=== PATIENT | male | born 1965 | race Caucasian/White ===

== ENCOUNTER 2017-10-16 19:28 | Inpatient (IN) | payer SELFPAY ==
[2017-10-16] MEDS ORDERED: LORazepam 2 MG/ML INJ IVP ONE (20:20)
--- NOTE | 2017-10-16 20:20 | EDPHY ---
H & P Stated Complaint: feelling bad, SI Source: Patient Exam Limitations: No limitations - Personal History Current Tetanus Diphtheria and Acellular Pertussis (TDAP): Yes - Medical/Surgical History Hx Asthma: No Hx Chronic Respiratory Disease: No Hx Diabetes: No Hx Cardiac Disease: No Hx Renal Disease: No Hx Cirrhosis: No Hx Alcoholism: No Hx HIV/AIDS: No Hx Splenectomy or Spleen Trauma: No Other PMH: bipolar, depression - Social History Smoking Status: Heavy smoker Time Seen by Provider: 10/16/17 20:13 HPI/ROS: CHIEF COMPLAINT: Suicidal thoughts HISTORY OF PRESENT ILLNESS: The patient is a 52-year-old man from [place] who comes to the emergency department complaining of suicidal thoughts. He states that he has been drinking heavily for the last 4 days. 2 weeks ago was the anniversary of his daughter's . He has a history of depression. He takes Abilify and Klonopin. He states that he has suffered significant withdrawals before. No recent trauma her. No fevers. He brought himself to the emergency department. Severity: Severe Modifying factors: None REVIEW OF SYSTEMS: Constitutional: denies: chills, fever, recent illness, recent injury EENTM: denies: blurred vision, double vision, nose congestion Respiratory: denies: cough, shortness of breath Cardiac: denies: chest pain, irregular heart rate, lightheadedness, palpitations Gastrointestinal/Abdominal: denies: abdominal pain, diarrhea, nausea, vomiting, blood streaked stools Genitourinary: denies: dysuria, frequency, hematuria, pain Musculoskeletal: denies: joint pain, muscle pain Skin: denies: lesions, rash, jaundice, bruising Neurological: denies: headache, numbness, paresthesia, tingling, dizziness, weakness Hematologic/Lymphatic: denies: blood clots, easy bleeding, easy bruising Immunologic/allergic: denies: HIV/AIDS, transplant 10 systems reviewed and negative except as noted EXAM: GENERAL: Well-appearing, well-nourished and in no acute distress. HEAD: Atraumatic, normocephalic. EYES: Pupils equal round and reactive to light, extraocular movements intact, sclera anicteric, conjunctiva are normal. ENT: TMs normal, nares patent, oropharynx clear without exudates. Moist mucous membranes. NECK: Normal range of motion, supple without lymphadenopathy or JVD. LUNGS: Breath sounds clear to auscultation bilaterally and equal. No wheezes rales or rhonchi. HEART: Regular rate and rhythm without murmurs, rubs or gallops. ABDOMEN: Soft, nontender, normoactive bowel sounds. No guarding, no rebound. No masses appreciated. BACK: No CVA tenderness, no spinal tenderness, step-offs or deformities EXTREMITIES: Mild tremors, Normal range of motion, no pitting or edema. No clubbing or cyanosis. NEUROLOGICAL: Cranial nerves II through XII grossly intact. Normal speech, normal gait. 5/5 strength, normal movement in all extremities, normal sensation , normal reflexes PSYCH: Tearful, anxious SKIN: Warm, dry, normal turgor, no visible rashes or lesions. (Moe Scott) Constitutional: Initial Vital Signs Temperature (C) 36.9 C 10/16/17 19:37 Heart Rate 98 10/16/17 19:37 Respiratory Rate 20 10/16/17 19:37 Blood Pressure 124/94 H 10/16/17 19:37 O2 Sat (%) 93 10/16/17 19:37 O2 Delivery Mode Room Air Allergies/Adverse Reactions: lithium Allergy (Verified 10/16/17 19:37) Home Medications: Medication Instructions Recorded Kunjerry 10/16/17 Medical Decision Making ED Course/Re-evaluation: 830 the patient is tearful and expressing suicidal ideations. I have placed him on an M1 hold. He will also require treatment to stave off alcohol withdrawal. 11:15 p.m. We continue to await psychiatric evaluation and sobriety. Care transferred to Dr. Johnston at shift change. (Moe Scott) Other Provider: 2300 care assumed by me from Dr. Scott pending mental health evaluation. 0700 patient signed out to Dr. Olivarez pending mental health evaluation when he is clinically sober. (Aristeo Johnston) Care assumed at 6:[address] Johnston with plan for psychiatric evaluation when no longer intoxicated. 755: Librium 50 mg orally for symptoms of withdrawal. 905: The patient will be transferred to [facility] for inpatient psychiatric hospital bed not available at this facility, in stable condition; accepting physician is Dr. Logan Fernandez. EMTALA form completed. Diagnosis bipolar disorder with suicidal ideation. (Jamie Olivarez) - Data Points Laboratory Results: Laboratory Results 10/16/17 20:20 10/16/17 20:20 Medications Given: Discontinued Medications Acetaminophen (Tylenol) 1,000 mg PO EDNOW ONE Stop: 10/17/17 00:00 Last Admin: 10/17/17 00:34 Dose: 1,000 mg Chlordiazepoxide HCl (Librium) 50 mg PO EDNOW ONE Stop: 10/17/17 07:48 Last Admin: 10/17/17 07:52 Dose: 50 mg Lorazepam (Ativan Injection) 2 mg IVP EDNOW ONE Stop: 10/16/17 20:21 Last Admin: 10/16/17 20:48 Dose: 2 mg Departure - Departure Disposition: [facility] IP Clinical Impression: Suicidal ideation, Alcoholism Bipolar disorder Qualifiers: Active/Remission status: currently active Current bipolar episode type: depressed Current episode severity: moderate Qualified Code(s): F31.32 - Bipolar disorder, current episode depressed, moderate Condition: Good Instructions: Depression (ED), Alcohol Intoxication (ED) Referrals: [facility],. [Clinic] - As per Instructions
[2017-10-16 20:32] LABS: PLATELET COUNT 293 10^3/uL (150-400)
[2017-10-16] MEDS ORDERED: ACETAMINOPHEN 500 MG TAB PO ONE (23:59)
[2017-10-17] MEDS ORDERED: chlordiazePOXIDE 25 MG CAP PO ONE (07:47)
--- NOTE | 2017-10-17 09:56 | ASMTTLCEVL ---
TLC Evaluation - Basic Information Evaluation Start Date and 10/17/2017 07:50 AM Time Hospital Status Answers: M1 Hold 72-hr M1 Hold Start Date 10/16/2017 08:20 PM and Time Patient statement Notes: Marjorie been having increased suicidal thought, not feeling good at all. Marjorie had suicidal thoughts for years, but it has gotten worse since the 6 year anniversary of my daughters suicide in which she hung herself on September 23, 2011. Thinking about hanging myself. I want help because I dont feel safe. Narrative Notes: Pt is a 52 yo, , unemployed, male with previous psychiatric history of Bipolar I Disorder, currently depressed, and alcohol use disorder, moderate to severe, initially self-presented to [facility] ED on a voluntary basis with above chief complaint. Pt was then placed on M1 hold by ED provider which noted: Intoxicated, history depression and suicidal ideation. Pt reported initial onset of feelings of depression beginning as a pre-teen. He first sought out outpatient assistance about 20 years ago. He reported a history of 8-10 prior psychiatric hospitalizations, most of which were in [place], [place] and the most recent was in [place], [place] for a week about one month ago. He came to [place] from [place] about 1-2 weeks ago and had been staying at a fpc in [place] prior to his coming to [place] yesterday. He has no local supports. Diagnosis History Notes: Pt reported being first diagnosed with Bipolar Disorder in 1999. Prior suicide attempts Notes: Pt reported two prior suicide attempts. The first involved cutting his wrist after his daughter committed suicide by hanging on September 23, 2011. His second suicide attempt involved taking an overdose of Klonopin about 2 years ago. Prior hospitalizations Notes: He reported a history of 8-10 prior psychiatric hospitalizations, most of which were in [place], [place] and the most recent was in [place], [place] for a week about one month ago. Treatment Responses Notes: Pt stated that he has not been taking Abilify daily. History of violence Notes: Pt denied any past history of aggression/violence. Therapist: None. Psychiatrist: None. Medications (name, dosage, route, freq uency) Notes: Abilify 10 mg po daily pt stated that he has not been taking it regularly lately; and Librium 5 mg po TID. Pt was administered the following medications in the ED: Ativan 2 mg IVP at 2048 hrs; Tylenol 1000 mg po at 0034 hrs and Librium 50 mg po at 0752. Allergies/Reaction Notes: Pt reported having allergy to [place]. Sleep Notes: Pt reported decreased sleep, typically tossing and turning throughout the night. Appetite Notes: Pt reported having decreased appetite, with 20 pound weight loss over past month. Medical/Surgical history Notes: Significant for appendectomy about 20 years ago and hernia repair about 10 years ago. Substance use history (frequency, intensity, his tory, duration) Notes: Pt reported having first tried alcohol around the age of 12. He reported more frequent and heavier use in his early 30s. He reported that for the past few weeks, he has been drinking about 18 beers or liquor daily, with last use being 3 beers yesterday. He reported having first tried marijuana as a teenager. He reported he smokes only occasionally, between 1-3 hits per episode, with last use being 2 days ago. BAL was .167 on 10/16/17 at 2020 hrs. UDS results positive for marijuana and benzodiazepines (given Ativan 2 mg IVP at 2048 hrs). Family composition Notes: Pt reported that his father 20 years ago from an overdose of sleeping pills. His mother is still living and resides in [place], [place]. He has 4 sisters, ages 52, 53, 50, and 58. He has little to no contact with family of origin. Need for family Answers: No participation in patient's care Family psychiatric/substance abuse history Notes: Father had reported history of bipolar disorder and 20 years ago from an overdose of sleeping pills. His only daughter had a history also of bipolar disorder and committed suicide by hanging on 09/23/2011. Developmental history Notes: Pt reported growing up in [place], [place]. He endorsed having achieved normal childhood developmental milestones. 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 He denied any childhood history of physical, emotional or sexual abuse/trauma. Abuse concerns Answers: None Marital status/children Notes: Pt reported from his of 6 years 18 years ago. They had a daughter who committed suicide by hanging 09/23/2011. She was their only child. Living situation Notes: Pt was residing in [place], [place] prior to coming to [place] about 1-2 weeks ago. Since his arrival in [place], pt had been staying at a fpc in [place] prior to his coming to [place] yesterday. Sexual history/orientation Notes: Not active. Heterosexual. Peer support/family strengths Notes: Pt has no local peer or family supports. Education level/history Notes: Pt has a high school education. 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 Currently unemployed. Notes: None. Legal Notes: Pt reported obtaining a DUI over 10 years ago. Mandaeism/Spiritual Notes: Pt reported being raised Jain. None identified which would impact treatment. Leisure Notes: Pt reported he enjoys fishing. Collateral Notes: None available. Patient's strengths Answers: Insightful (Please select at least TWO strengths): Motivated for Treatment Willingness TLC Evaluation - Mental Status Exam Appearance: Answers: Appropriate Unclean Unkempt Disheveled Eye Contact: Answers: Good/Direct Intermittent Mood: Answers: Depressed Sad Affect: Answers: Blunted Calm Congruent w/ Mood Flat Sad Subdued Behavior: Answers: Appropriate Cooperative Speech: Answers: Relevant Logical Clear Coherent Thought Process: Answers: Organized Oriented Alert Intact Insight: Answers: Good Judgement: Answers: Good Manic Signs/Symptoms Answers: Mood Swings Depression Answers: Crying Spells Signs/Symptoms: Difficulty Concentrating Diminished Interest Diminished Pleasure Flat Affect Hopelessness Psychomotor Retardation Sad Mood Withdrawn Worthlessness Hallucinations: Answers: None Current Stage of Change Answers: Preparation Pt reported to have Answers: Yes suicidal/self-injuring ideation/behavior? Pt reported to be making Answers: Yes suicidal/self-injuring threats? Pt reported to have Answers: No aggression/assault ideation/behavior? Pt reported to be making Answers: No aggression/assault threats? Pt exhibits inability to Answers: No care for self/grave disability? Ideation/behavior is Answers: Yes chronic? Patient has a specific Answers: Yes plan? Pt has access to means to Answers: Yes execute the plan? Ideation involves Answers: Yes serious/lethal intent? Ideation has Answers: No delusional/hallucinatory content? History of Answers: Yes suicidal/self-injuring ideation, behavior, or threats? History of Answers: No aggressive/assaultive ideation, behavior, or threats? History of serious Answers: No physical harm to self/others while in treatment setting? TLC Evaluation - Suicide/Homicide Risk Suicide Risk Factors: Answers: < 20 or > 40 Years of Age Alcohol/Heavy Drug Use Anhedonia Bipolar Disorder Financial Difficulties Flat Affect Global Insomnia Hopelessness Hx of Suicide Attempt by Family Member Impulsivity Inadequate Social Support Intoxication Lack of Social Support Major Depression Organized Lethal Plan Prior Suicide Attempt(s) Unstable Living Situation Homicide/violence risk Answers: None factors: Current Suicidal Answers: Yes Ideation? Current Suicide Ideation Daily with increased intensity. Frequency: Current Suicidal Ideation Answers: Yes in the Past 48 Hours? Current Suicidal Ideation Answers: Yes in the Past Month? Current Suicidal Answers: Yes Ideation, Worst Ever? Suicide Internal Answers: Absence of Psychosis Protective Factors: Suicide External Answers: None Protective Factors: Ranking of patient's Answers: Severe suicidal risk: Ranking of patient's Answers: Low homicidal risk: TLC Evaluation - Wrap-up BDI Total Score: 41 BDI Question #2 Score: 2 BDI Question #9 Score: 2 BSS Total Score: 34 AXIS I Diagnosis (include DSM-V and ICD-10 codes), must also be entered in [employer], which is the source of truth. Notes: Bipolar I Disorder, current or most recent episode depressed, severe 296.53 (F31.4) Alcohol Intoxication, with use disorder, moderate/severe 303.00 (F10.229) In consultation with [facility] ED physician, Jamie Olivarez MD and on-call psychiatrist, Logan Fernandez MD, both concurred that pt appears to meet 27-65 criteria requiring psychiatric hospitalization as pt appears to be at risk of harm to self due to a mental illness condition. Pt was given the 3[facility] prohibited belongings list while in the ED. Evaluation End Date and 10/17/2017 10:00 AM Time (HH:MARIAN): Date Signed: 10/17/2017 09:55 AM Electronically Signed By:Edward Thomas
--- NOTE | 2017-10-17 09:57 | ASMTTCLDSP ---
TLC Discharge Disposition Disposition: Answers: Admit Disposition Notes: Notes: Admit 3N. Discharge Concerns/Recommendations: Notes: In consultation with [facility] ED physician, Jamie Olivarez MD and on-call psychiatrist, Logan Fernandez MD, both concurred that pt appears to meet 27-65 criteria requiring psychiatric hospitalization as pt appears to be at risk of harm to self due to a mental illness condition. Pt was given the 3N prohibited belongings list while in the ED. Was patient given the Answers: Yes Inpatient Behavioral Health Prohibited Belongings List while in the ED? For inpatient Logan Fernandez MD admission, the following psychiatrist agreed to accept patient for admission to Behavioral Health ([facility]): Date and time M1 hold 10/16/2017 08:20 PM vacated (time format is hh:mm): Type of Hold: Answers: M1/72-hour Hold Hold initiated by: Answers: ED Physician Date Signed: 10/17/2017 09:56 AM Electronically Signed By:Edward Thomas
--- NOTE | 2017-10-17 11:49 | PDGENHP ---
History and Physical - Chief Complaint suicidal ideation - History of Present Illness 52yo M with bipolar depression, etoh abuse presents with suicidal ideation. Just came to [facility] 2-3 days ago from [place], [place] reportedly to be close to family. He has been drinking heavily for last week or so; this was triggered by the anniversary of his daughter's . He reports have severe etoh withdrawals before, including seizures. He currently denies pain, fevers, shortness of breath, chest pain, nausea, vomiting, diarrhea. In the ED, he was initially intoxicated. An M1 hold was placed. Case discussed with ED physician Dr Jamie Olivarez. No prior records for review. History Information - Allergies/Home Medication List Allergies/Adverse Reactions: lithium Allergy (Verified 10/17/17 09:41) Dyspnea Home Medications: ARIPiprazole [Abilify 5 mg (*)] 5 mg PO HS 10/16/17 [Last Taken 1 Week Ago ~04/24] I have personally reviewed and updated: family history, medical history, social history, surgical history - Past Medical History Additional medical history: bipolar disorder, depression, etoh abuse complicated by withdrawal seizures - Surgical History Additional surgical history: appendectomy, hernia repair - Family History Positive for: non-pertinent - Social History Smoking Status: Heavy smoker Alcohol Use: Heavy (18 beers/day) Drug Use: Marijuana Additional social history: Recently moved from [place], [place] to [place], [place]. Currently unemployed. Review of Systems Review of Systems: ROS: 10pt was reviewed & negative except for what was stated in HPI & below Physical Exam Physical Exam: Temp Pulse Resp BP Pulse Ox 36.8 C 87 14 131/78 H 91 L 10/17/17 11:38 10/17/17 11:38 10/17/17 11:38 10/17/17 11:38 10/17/17 11:38 Constitutional: no apparent distress, not in pain, other (disheveled) Eyes: PERRL, anicteric sclera, EOMI Ears, Nose, Mouth, Throat: hearing normal, ears appear normal, no oral mucosal ulcers, dry mucous membranes Cardiovascular: regular rate and rhythym, no murmur, rub, or gallop, No edema Respiratory: no respiratory distress, no rales or rhonchi, clear to auscultation Gastrointestinal: normoactive bowel sounds, soft, non-tender abdomen, no palpable masses Skin: warm, normal color, no rashes or abrasions, no fluctuance, no induration, No mottled Neurologic: AAOx3 Psychiatric: interacting appropriately, not anxious, not encephalopathic, thought process linear Lab Data & Imaging Review 10/16/17 20:20 10/16/17 20:20 WBC 10.06 10^3/uL (3.80-9.50) H 10/16/17 20:20 RBC 4.80 10^6/uL (4.40-6.38) 10/16/17 20:20 Hgb 15.7 g/dL (13.7-17.5) 10/16/17 20:20 Hct 45.8 % (40.0-51.0) 10/16/17 20:20 MCV 95.4 fL (81.5-99.8) 10/16/17 20:20 MCH 32.7 pg (27.9-34.1) 10/16/17 20:20 MCHC 34.3 g/dL (32.4-36.7) 10/16/17 20:20 RDW 15.2 % (11.5-15.2) 10/16/17 20:20 Plt Count 293 10^3/uL (150-400) 10/16/17 20:20 MPV 8.8 fL (8.7-11.7) 10/16/17 20:20 Neut % (Auto) 68.0 % (39.3-74.2) 10/16/17 20:20 Lymph % (Auto) 22.6 % (15.0-45.0) 10/16/17 20:20 [place] % (Auto) 7.7 % (4.5-13.0) 10/16/17 20:20 Eos % (Auto) 0.8 % (0.6-7.6) 10/16/17 20:20 Baso % (Auto) 0.5 % (0.3-1.7) 10/16/17 20:20 Nucleat RBC Rel Count 0.0 % (0.0-0.2) 10/16/17 20:20 Absolute Neuts (auto) 6.85 10^3/uL (1.70-6.50) H 10/16/17 20:20 Absolute Lymphs (auto) 2.27 10^3/uL (1.00-3.00) 10/16/17 20:20 Absolute Monos (auto) 0.77 10^3/uL (0.30-0.80) 10/16/17 20:20 Absolute Eos (auto) 0.08 10^3/uL (0.03-0.40) 10/16/17 20:20 Absolute Basos (auto) 0.05 10^3/uL (0.02-0.10) 10/16/17 20:20 Absolute Nucleated RBC 0.00 10^3/uL (0-0.01) 10/16/17 20:20 Immature Gran % 0.4 % (0.0-1.1) 10/16/17 20:20 Immature Gran # 0.04 10^3/uL (0.00-0.10) 10/16/17 20:20 Sodium 143 mEq/L (135-145) 10/16/17 20:20 Potassium 4.3 mEq/L (3.3-5.0) 10/16/17 20:20 Chloride 106 mEq/L (97-110) 10/16/17 20:20 Carbon Dioxide 22 mEq/l (22-31) 10/16/17 20:20 Anion Gap 15 mEq/L (8-16) 10/16/17 20:20 BUN 9 mg/dL (7-23) 10/16/17 20:20 Creatinine 0.9 mg/dL (0.7-1.3) 10/16/17 20:20 Estimated GFR > 60 10/16/17 20:20 Glucose 86 mg/dL (70-100) 10/16/17 20:20 Calcium 9.5 mg/dL (8.5-10.4) 10/16/17 20:20 Urine Opiates Screen NEGATIVE (NEGATIVE) 10/16/17 20:20 Urine Barbiturates NEGATIVE (NEGATIVE) 10/16/17 20:20 Ur Phencyclidine Scrn NEGATIVE (NEGATIVE) 10/16/17 20:20 Ur Amphetamine Screen NEGATIVE (NEGATIVE) 10/16/17 20:20 U Benzodiazepines Scrn NON-NEGATIVE (NEGATIVE) H 10/16/17 20:20 Urine Cocaine Screen NEGATIVE (NEGATIVE) 10/16/17 20:20 U Marijuana (THC) Screen NON-NEGATIVE (NEGATIVE) H 10/16/17 20:20 Ethyl Alcohol 167 mg/dL (0-10) H 10/16/17 20:20 Assessment & Plan Assessment: 52yo M with bipolar depression, etoh abuse presents intoxicated with suicidal ideation. Plan: #Suicidal ideation: - M1 hold placed - Being transferred to [facility] for inpatient behavioral health for stabilization #EtOH abuse: Presented intoxicated to ED. Will be at high risk for withdrawal given his heavy usage and prior history. - Would place on [facility] protocol - Micronutrient repletion: thiamine, MV, folate #Bipolar d/o: SI as above. - Defer continuing his home abilify and klonipin to behavioral health team #Tobacco use: Nicotine replacement therapy Diet: regular VTE ppx: high risk, LMWH Disposition: Being transferred to inpatient behavioral health
--- NOTE | 2017-10-17 13:55 | ASMTBHMTP ---
Master Treatment Plan Master Treatment Plan Answers: Depressed Mood with for: Suicidal Ideation Date: 10/17/2017 Diagnosis on Admission: Bipolar I Disorder, current or most recent episode depressed, severe 296.53 (F31.4) Expected length of stay: 5-7 days Reason for admission: Notes: The patient stated, "Depression; not feeling really good. I'm tired." He rated himself 8/10 for SI with a plan to "hang self." The patient reported that he was previously staying at a penitentiary in [place] after relocating here from [place]. He stated, "My daughter in 2011 and she always wanted to come to [place]." He reported that he abuses ETOH. Patient's stated presenting problems: Notes: The patient stated, "been going on a long time (6 months), it's better at times, but it always seems to come back. It is like a roller coaster ride" (referencing his depression). Patient's goals for treatment: Notes: The patient stated, "to feel better; get my life back together." The patient reported having been off his medication; Abilify 5mg. He agreed that stabilization would likely include medication adherence and a possible increase in dosage. The patient will participate in programming including attending groups, completing his ADLs, and completing three meals per day. 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 Identify supports outside of hospital: Notes: The patient stated, "None." Discharge criteria: Notes: Suicidal ideation will resolve and patient will have a plan to safely manage recurrent suicidial ideation. Initial disposition plan/considerations: Notes: The patient stated, "I haven't thought that far ahead. I would like to stay here but I imagine I will probably have to go back to [place]." The patient did not elaborate. Master Treatment Plan Required Signatures Psychiatrist signature: Answers: Psychiatrist: RN on-shift signature: Answers: RN: Patient signature: Answers: Patient: Date Signed: 10/17/2017 01:55 PM Electronically Signed By:Amelie Agarwal
[2017-10-17] MEDS ORDERED: NICOTINE POLACRILEX 2 MG GUM B PRN (14:03)
[2017-10-17] MEDS ORDERED: OLANZapine DISINTEGR 10 MG TAB PO PRN (14:03)
[2017-10-17] MEDS ORDERED: ACETAMINOPHEN 325 MG TAB PO PRN (14:03)
[2017-10-17] MEDS ORDERED: MAG HYDROX/AL HYDROX/SIMETH 30 ML UDCUP PO PRN (14:03)
[2017-10-17] MEDS ORDERED: MAGNESIUM HYDROXIDE 30 ML UDCUP PO PRN (14:03)
[2017-10-17] MEDS ORDERED: chlordiazePOXIDE 25 MG CAP PO PRN ×2 (14:05→14:08)
[2017-10-17] MEDS ORDERED: PROMETHAZINE HCL 25 MG TAB PO PRN (14:05)
[2017-10-17] MEDS ORDERED: THIAMINE HCL 100 MG TAB PO ONE (14:05)
--- NOTE | 2017-10-17 14:09 | PDMN ---
Medical Necessity [place] [facility] [id number] Bipolar Disorders, Adult IP Care: 52 y/o w/ bipolar I disorder, current or most recent episode depressed, severe, etoh intoxication with use disorder, mod/severe, risk to self/suicidal ideation
[2017-10-17] MEDS: chlordiazePOXIDE 25 MG CAP PO SCH ×2 (15:56→20:41)
[2017-10-18] MEDS: THIAMINE HCL 100 MG TAB PO SCH (08:39)
[2017-10-18] MEDS: FOLIC ACID 1 MG TAB PO SCH (08:39)
[2017-10-18] MEDS: MULTIVITAMINS 1 EACH TAB PO SCH (08:39)
[2017-10-18] MEDS: chlordiazePOXIDE 25 MG CAP PO SCH (08:39)
[2017-10-18] MEDS: IBUPROFEN 200 MG TAB PO PRN (08:46)
[2017-10-18] MEDS ORDERED: OLANZapine DISINTEGR 5 MG TAB PO PRN (11:13)
[2017-10-18] MEDS: ARIPiprazole 10 MG TAB PO SCH (11:59)
--- NOTE | 2017-10-18 12:44 | BAPA ---
DATE OF SERVICE: 10/18/2017 CHIEF COMPLAINT: "Here because feeling depressed and feeling suicidal." HISTORY OF PRESENT ILLNESS: From the ED note dated 10/16/2017, patient presented to the emergency department complaining of suicidal thoughts. Patient reported he had been drinking heavily for the last 4 days. The patient reported 2 weeks ago was the anniversary of his daughter's . The patient has a history of depression. Reports he takes Abilify and Klonopin. Patient reported he has suffered significant withdrawals from alcohol in the past. Patient self-presented to the emergency department. From the [facility] evaluation dated 10/17/2017. The patient reported to [facility] varnish melter "I had been having increased suicidal thoughts, not feeling good at all. I have had suicidal thoughts for years, but it has gotten worse since the 6-year anniversary of my daughter's suicide in which she hung herself on September 23, 2011. Thinking about hanging myself. I want help because I do not feel safe." Patient reported a history of 8-10 prior psychiatric hospitalizations, most of which were in [place], [place], and the most recent was in [place], [place], for a week, about 1 month ago. Patient recently came to [place] from [place] about 1 to 2 weeks ago and has been staying at a fci in [place] prior to coming to [place] on 10/16/2017. Patient reported having no local supports. Patient was admitted voluntarily due to being a danger to himself and is hospitalized for safety crisis stabilization and medication evaluation. Patient describes to this DISH NETWORK INSTALLER circumstances that led to current hospitalization as has a history of getting "real manic and can go, go, go." Patient reported he is not even sure how he ended up in [place], [place]. Reports recently feeling a decreased need for sleep. Patient reports he has a history of bipolar disorder that has been well controlled on Abilify 10 mg p.o. daily and reports this is the only medication that has ever really helped. Patient reports he has a history of nonadherence to medications and reports he often times stops taking his medications such as Abilify when he starts feeling better and is having no bipolar vida symptoms. Patient reports he self medicates with alcohol during episodes of vida and depression. Patient reports he drinks anywhere from 18 to 24-pack of beer or at least 1/5 of whiskey per day during episodes of vida. Patient reports that drinking alcohol is something that he wants to work on and reports that he only has desire to drink during periods of mood instability. Patient reports he can go several months, up to 8 months or longer, and even be around people that are drinking and reports he has no desire to drink and again, reports he only has desire to drink during periods of mood instability, either vida or depression episodes. Patient describes to this DISH NETWORK INSTALLER history of psychiatric symptoms including vida symptoms occurring about every 6 months and these periods of time can last anywhere from 6 days up to 2 weeks. Patient reports feeling an expansive mood, is irritable, has an inflated self-esteem, decreased need for sleep. Patient reports a pressure to keep talking, racing thoughts, agitation. Patient reports that he was experiencing this vida episode prior to his hospitalization and patient reports he now feels depressed. Reports feelings of worthlessness and excessive guilt, diminished ability to think and concentrate, indecisiveness, poor appetite and recent suicidal ideation. Patient reports current anxiety symptoms, including difficult to control his worry, feeling restless and keyed up, on edge, being easily fatigued, irritability, and at times sleep disturbance. Patient reports this is a difficult time for him as this time of year is a trigger for him due to his daughter committing suicide at the age of 21 in 2011 on September 22. Patient reports he recently traveled from [place] to [place] and has been living in [facility] for approximately 2 weeks, and then arrived in [place] and reports that he went to the emergency department the same day he arrived in [place]. Patient reports that he traveled and left [place] due to an argument with his family. Patient does not provide any further details regarding this discord. Family denies history of abuse to this DISH NETWORK INSTALLER. Patient denies other psychiatric symptoms, including symptoms of ADHD, OCD, PTSD, psychosis, and any other symptom of a psychiatric disorder other than described above. Patient describes to this DISH NETWORK INSTALLER current psychiatric symptoms are impacting managing his day -to-day life, described as currently homeless, unemployed. Reports he has no social supports as he is new to the [place] area. Patient reports that family relationships are "not good at the moment." With regard to whether the patient is generally satisfied with his life, patient reports he is currently disappointed in himself. Patient reports most recent suicidal ideation was this morning when he woke up. Patient reports that he feels like if he dies this will just all go away. However, patient reports, "I do not really want to ." Patient reports he has thought of ways to complete suicide, including a plan to hang himself. Patient reports a level of intent as 7/10. Patient reports protective factors or reasons to live as his mother and the goal to help others. Patient reports future goals as to get stable on medications and find a stable place to live. Patient reports main support network as a cheondoism, families in [place], [place] and [place], and patient reports he also connected with a cheondoism in [place] prior to his hospitalization. Patient denies current homicidal ideation. Patient denies current self-injurious ideation. Patient reports he currently does not have outpatient services established for medication management or therapy. PAST PSYCHIATRIC HISTORY: The patient describes to this DISH NETWORK INSTALLER the following psychiatric history. Patient reports past diagnosis of bipolar disorder. Patient reports he has been tried on numerous medications and reports that Abilify is the 1 medication that has been the most helpful for his symptoms. Patient reports trial of both Depakote and lithium, and reports that these medications caused side effects that were intolerable to him and also he did not think that these medications helped with his symptoms. Patient reports he has taken Latuda in the past and this medication caused severe tremors. Patient reports outpatient psychiatric services in the past as services in the [place] area. Patient reports several inpatient psychiatric hospitalizations, including [place] in 2001, [place], [place], and also the [facility] in [place]. The patient does not provide any further details regarding history of inpatient hospitalizations. The patient reports he has experienced seizures during alcohol withdrawal. The patient reports 1 previous suicide attempt in 2012 after losing his daughter to suicide. The patient denies history of self- injurious behavior. ALLERGIES: [place]. CURRENT MEDICATIONS: After reviewing options, risks and benefits, patient agrees to Abilify 10 mg p.o. daily, gabapentin 300 mg 3 t.i.d. for anxiety, and Zyprexa Zydis 5 mg p.o. at bedtime p.r.n. for acute agitation. PAST MEDICAL HISTORY: The patient describes to this DISH NETWORK INSTALLER the following: Patient reports that he has suffered 3 concussions in the early . Patient does not describe any ongoing medical issues due to these concussions. Patient denies any history of major illnesses or major hospitalizations. SOCIAL HISTORY: The patient describes to this DISH NETWORK INSTALLER the following social history. Patient reports he was born in [place], [place] and raised the majority of his life in [place], [place], mostly by his mother. Patient reports he is currently homeless. Patient describes meeting all his developmental milestones and reports no learning delays or difficulties. Patient describes sexual orientation as heterosexual and when asked about whether he is in a current relationship, patient states "I have a good friend." Patient reports a history of being once, once. Patient reports he had 1 child, a daughter, and daughter committed suicide at age 21. Occupation: Patient reports he is currently unemployed and has been on Disability since 2012. 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 Patient denies history of duty. Patient reports baptism as Spiritism. Patient denies current legal charges. SUBSTANCE USE HISTORY: The patient describes to this DISH NETWORK INSTALLER the following substance use history. Patient reports history of binge drinking during episodes of mood instability. Patient reports he drinks up to 18 to 24-packs of beer or a 5th of whiskey per day during periods of vida or depression. Patient reports he does not have a desire to drink when he is not in a state of mood instability. Patient reports drinking this amount of alcohol prior to this hospitalization. Patient states that when he is drinking. He smokes anywhere from 1 to 2 packs of cigarettes per day and when he is not drinking, he smokes about 4 to 5 cigarettes per day. Patient reports marijuana use as "occasional" and reports he has been smoking more marijuana since arriving in [place]. Patient denies a history of using meth, cocaine, crack, heroin, prescription medication, or any other substances of abuse. FAMILY PSYCHIATRIC HISTORY: The patient describes to this DISH NETWORK INSTALLER the following family psychiatric history. Patient reports his daughter was diagnosed with bipolar disorder. Patient reports his daughter committed suicide at age 21. Patient denies family history of substance use. ADMISSION LABS: CBC from 10/16/2017: White blood cells were elevated at 10.06 , and absolute neutrophils were elevated at 6.85, otherwise was within normal limits. Chemistry from 10/16/2017, within normal limits. Toxicology screen from 10/16/2017, non-negative for benzodiazepines and non-negative for THC. Ethyl alcohol level was elevated at 167, otherwise was negative for substances of abuse. MENTAL STATUS EXAM: The patient is a well-nourished male looking older than stated chronological age. Attire is appropriate and dress is casual and neat and clean. Grooming status is appropriate and clean. Ambulation is independent. Gait is normal and coordinated. Posture is normal and relaxed. Eye contact is appropriate and adequate. Motor activity is appropriate with purposeful, organized, coordinated movements with no involuntary movements noted. Attitude is cooperative and friendly. Patient appears attentive and relates well to this interviewer. Language production is spontaneous. Rate, rhythm and volume are normal. Articulation is clear. Patient reports mood as depressed with constricted, flat and congruent affect. Patient's thought process is linear and logical with no loose associations, tangential thought, thought blocking, concrete thinking, or any other signs of formal thought disorder. Patient does report suicidal thoughts. Reports that he had suicidal thoughts this morning upon awakening. Patient denies homicidal thoughts, ideas , or plans. Patient denies auditory, visual hallucinations. Patient denies delusions. Patient does not appear to be attending to internal stimuli. Patient is oriented to person, place, time, and situation. The patient's attention and concentration are adequate. The patient's insight and judgment are poor. There is no evidence of gross cognitive dysfunction at any point during the interview and no evidence of apparent dysfunction in recent or remote memory noted. The patient does not report undesirable side effects from the current medications. DIAGNOSIS: 1. Bipolar II disorder, severe, current depressed, with anxious distress and with mood congruent psychotic features. 2. Alcohol use disorder, severe, in a controlled environment. 3. Cannabis use disorder, mild, in a controlled environment. 4. Homelessness. FORMULATION: The patient is a 52-year-old male, single, unemployed, living homeless in [place], who presents to the hospital voluntarily due to a risk to himself and is currently hospitalized for observation of safety, crisis stabilization, and medication evaluation. Patient presents with problems of mood instability that have been steadily increasing over the past several days. Patient's life has been affected by these problems, including suicidal ideation that led to this hospitalization. The exacerbations of symptoms were likely preceded by the patient's nonadherence to medication treatment and is complicated by alcohol and cannabis use. Patient has a past psychiatric history of bipolar 2 disorder and patient reports a good response from Abilify 10 mg p.o. daily for mood symptoms. Based on the patient's history and current presentation, his diagnosis is bipolar 2 disorder, severe, with anxious distress and mood congruent psychotic features; alcohol use disorder, severe, in a controlled environment; and cannabis use disorder, mild, in a controlled environment; homelessness. Patient is a high suicide safety risk due to recent suicidal ideation as of this morning, reports of having a plan to hang himself with high intent, and a history of bipolar disorder that is currently uncontrolled. Patient presenting with mood instability. Protective factors while hospitalized include ongoing safety checks, active involvement in treatment, and support from our treatment team. Patient could benefit from inpatient hospitalization for safety, crisis stabilization, and medication evaluation. PLAN: (1) Psychotropic medications: After reviewing options, risks, and benefits patient agrees to continue current medications. No medication changes at this time as more time is needed to determine ongoing tolerability and efficacy. Plan is to continue to observe patient for response and side effects from medications, and ongoing monitoring and evaluation. (2) Review with patient informed consent and recommendations for psychotropic medication treatment listed below (3) Labs: A1c, fasting lipid panel, liver function test (4) Therapy: continue milieu and group therapy (5) Further investigation including gathering information from patients relatives and review of past case records to inform treatment plan. (6) Safety/Wellness plan and follow-up outpatient appointments to be established prior to discharge. Next steps are for patient to meet with field care coordinator to plan a safe discharge plan and establish outpatient services for ongoing treatment. (7) Confer with inpatient treatment team regarding treatment plan. (8) Legal status: voluntary (9) Consider discharge on Tuesday if patient is in stable condition, safe, and has a safe discharge plan. (10) Substance abuse interventions: ESTIMATED LENGTH OF STAY: 3-5 days PSYCHOTROPIC MEDICATION TREATMENT INFORMED CONSENT and RECOMMENDATIONS: Review nature of condition, diagnosis, and prognosis. Review nature and purpose of psychotropic medication treatment. Review type of psychotropic medications being ordered. Review risk and benefits of psychotropic medication treatment. Review probable length of time will need to take medications. Review risk and benefits of not undergoing psychotropic medication treatment. Review alternative treatments to psychotropic medications. Review psychotropic medications contraindications, drug-drug interactions, side effects, and importance of reporting any side effects to a psychiatric provider or nurse during inpatient hospitalization, and upon discharge to patients psychiatric outpatient provider, primary care provider, or other health nursing care partner. Review importance of asking a nurse, psychiatric provider, or primary care provider any questions or problems concerning the psychotropic medications. Verifty patient understands the information that has been provided, and understands, accepts, and agrees to psychotropic medications. Review patients safety plan and importance of patient to communicate to staff while hospitalized if patient is ever a danger to self/others, or unable to care for self, and upon discharge, the importance for patient to contact [facility] or [facility], or go to the nearest emergency room, if patient is ever a danger to self/others, or unable to care for self. Recommend that upon discharge patient establish medication management treatment with a psychiatric provider, establishes routine therapy appointments, and follow-up with primary care provider. Verify patient understands and agrees to these recommendations. /[id number]/MODL MTDD
--- NOTE | 2017-10-18 14:34 | ASMTCMCOM ---
CM Note CM Note Notes: CC sent referral to [facility] for an out-patient appt to start services. Waiting to hear back. Date Signed: 10/18/2017 02:32 PM Electronically Signed By:José Landon
[2017-10-18] MEDS: GABAPENTIN 300 MG CAP PO SCH ×2 (15:50→20:41)
[2017-10-18] MEDS ORDERED: chlordiazePOXIDE 25 MG CAP PO SCH (21:00)
[2017-10-19] MEDS ORDERED: ARIPIPRAZOLE (ABILIFY MAINTENA) 400 MG VIAL IM ONE ×2 (07:29→15:00)
[2017-10-19] MEDS ORDERED: GABAPENTIN 300 MG CAP PO SCH ×2 (07:31→10:51)
--- NOTE | 2017-10-19 07:47 | SOAPPROG ---
SOAP Progress Note Assessment/Plan: Assessment: Bipolar II Disorder, with anxious distress. Cannabis use disorder, mild, in controlled environment. Alcohol Use Disorder, severe, in controlled environment , Homelessness. Improvement noted. (see subjective/objective note). Patient could benefit from continued inpatient hospitalization for crisis stabilization , safety, and medication evaluation. Patient could benefit from continued hospitalization to begin trial of Abilify Maintena as patient reports history of medication non-adherence with oral Abilify and states this has led to exacerbation of symptoms and hospitalizations. Plan: (1) Psychotropic medications: After reviewing options, risks, and benefits patient agrees to continue current medications. Reduce Librium to 25 mg po QD for benzo taper, increase Gabapentin to 600 mg po TID, and Abilify Maintena 400 mg IM. No other medication changes at this time as more time is needed to determine ongoing tolerability and efficacy. Plan is to continue to observe patient for response and side effects from medications, and ongoing monitoring and evaluation. (2) Review with patient informed consent and recommendations for psychotropic medication treatment listed below (3) Labs: no additional labs at this time (4) Therapy: continue milieu and group therapy (5) Further investigation including gathering information from patients relatives and review of past case records to inform treatment plan. (6) Safety/Wellness plan and follow-up outpatient appointments to be established prior to discharge. Next steps are for patient to meet with manager managed care to plan a safe discharge plan and establish outpatient services for ongoing treatment. (7) Confer with inpatient treatment team regarding treatment plan. (8) Legal status: voluntary (9) Consider discharge on if patient is in stable condition, safe, and has a safe discharge plan. (10) Substance abuse interventions: cannabis and alcohol abuse/binge drinking PSYCHOTROPIC MEDICATION TREATMENT INFORMED CONSENT and RECOMMENDATIONS: Review nature of condition, diagnosis, and prognosis. Review nature and purpose of psychotropic medication treatment. Review type of psychotropic medications being ordered. Review risk and benefits of psychotropic medication treatment. Review probable length of time patient will need to take medications. Review risk and benefits of not undergoing psychotropic medication treatment. Review alternative treatments to psychotropic medications. Review psychotropic medications contraindications, drug-drug interactions, side effects, and importance of reporting any side effects to a psychiatric provider or nurse during inpatient hospitalization, and upon discharge to patients psychiatric outpatient provider, primary care provider, or other health career placement services counselor. Review importance of asking a nurse, psychiatric provider, or primary care provider any questions or problems concerning the psychotropic medications. Verify patient understands the information that has been provided, and understands, accepts, and agrees to psychotropic medications. Review patients safety plan and importance of patient to report to staff while hospitalized if patient is ever a danger to self/others, or unable to care for self, and upon discharge, the importance for patient to contact [facility] or [facility], or go to the nearest emergency room, if patient is ever a danger to self/others, or unable to care for self. Recommend that upon discharge patient establish medication management treatment with a psychiatric provider, establishes routine therapy appointments, and follow-up with primary care provider. Verify patient understands and agrees to these recommendations. 10/19/17 07:47 Subjective: Following up with patient for evaluation of vida and safety. Patient reports, "Feels a little better." Patient expresses the following psychiatric symptoms: moderate anxiety, "not as bad." Patient reports taking medications as prescribed, and describes response to medications as "not really sure, didn't feel much different when taking the medications, still feel really anxious." Patient does not report undesirable side effects from the medications, and agrees to continue current medications. Patient reports appetite as improved, and reports eating all of his meals. Patient describes getting 6 hours of sleep. Patient states he feels well rested. Patient asks about Abilify Maintena and states a [place] would be beneficial for him as he has a history of not taking his medications on time. Patient agrees to Abilify Maintena 400 mg IM today and agrees to increase Gabapentin to 600 mg po TID. Patient requests to discharge tomorrow and states he plans to travel to [place], [place] where is family resides. Objective: Vital Signs Temp Pulse Resp BP Pulse Ox 36.5 C 74 16 128/87 H 91 L 10/19/17 06:38 10/19/17 06:38 10/19/17 06:38 10/19/17 06:38 10/19/17 06:38 NURSING REPORT: Consulted with nursing for update on patients progress in treatment. Nurses report patient is engaged in treatment, is attending groups, slept 8 hours, expresses the following psychiatric symptoms: severe anxiety; exhibits the following psychiatric symptoms: anxious; is eating all meals, is attending to ADLs, is taking medications as prescribed with no report of side effects, with no s/s of EPS/akathisia, and denies SI/HI, denies A/V hallucinations, and denies delusions. [employer] UPDATE: currently working to set-up OP services. SUBSTANCE ABUSE BRIEF INTERVENTION: Brief intervention regarding the risks of cannabis abuse and alcohol/binge drinking is provided to patient with goal to reduce the risk of harm that could result from the continued use of cannabis, with the general aim to investigate the problem, raise awareness of problem, develop a solution with the patient, recommend a specific change or activity, and motivate the patient toward change. Assess substance abuse behavior and give supportive advice about harm reduction, recommend a reduction in hazardous/ at-risk consumption patterns, and facilitate referrals for additional specialized treatment with rn acute care. Intermediate goal is for the patient to quit use of cannabis and attend OP substance abuse treatment; groups and individual therapy. Intervention focus on intermediate goals to allow for more immediate success in the treatment process to keep the patient motivated. Review following with patient: Cannabis use risks: Short-term use: impaired short-term memory, impaired motor coordination, altered judgement, in high doses paranoia and psychosis. Long-term use addiction, diminished life satisfaction and achievement, symptoms of chronic bronchitis, and increased risk of chronic psychosis disorders if predisposition to such disorders. In withdrawal anger, aggression irritability, anxiety and nervousness, decreased appetite or weight loss, restlessness, and sleep difficulties with strange dreams. Alcohol/Binge Drinking risks: short-term: injuries, violence, alcohol poisoning, risky sexual behaviors. Long-term: high blood pressure, stroke, liver disease, digestive problems, cancer, learning and memory problems, depression and anxiety, social problems, and alcohol dependence. MSE: The patient is a well-nourished male looking stated chronological age. Attire is appropriate and dress is casual. Grooming status is appropriate and neat and clean. Ambulation is independent. Gait is normal and coordinated. Posture is normal and relaxed. Eye contact is appropriate, and adequate. Motor activity is overactive, fidgety; movements are coordinated; with no involuntary movements. Attitude is cooperative and friendly. Patient appears attentive and relates well to this interviewer. Language production is spontaneous. Rate is pressured. Latency of response is shortened, and amount is hypertalkative. Articulation is clear. Patient reports mood as good with expansive, and inappropriate and incongruent affect. Patients thought process is tangential. Associations are loose. Patient does not report suicidal/ homicidal thoughts, ideas, or plans. Patient denies auditory, visual hallucinations. Patient denies delusions. Patient does not appear to be attending to internal stimuli. Patients attention and concentration are improved. Patient is oriented to person, place, time, and situation. Patients insight and judgement are fair as evidence by motivation for treatment. No evidence of gross cognitive dysfunction at any point during the interview. No evidence of apparent dysfunction in recent or remote memory. - Time Spent With Patient Time Spent With Patient: 20 minutes, met with patient individually. - Pending Discharge Pending Discharge Within 24 Hours: Yes Pending Discharge Within 48 Hours: No Pending Discharge Date: 10/20/17 Pending Discharge Time: 11:00 ICD10 Worksheet Patient Problems: Problems Problem Status Onset Alcohol use disorder, severe, dependence Acute Cannabis use disorder, mild, in controlled environment Acute Homelessness Acute Non-adherence to medical treatment Acute Severe bipolar II disorder, hypomanic episode, in partial remission, with anxious distress Chronic
[2017-10-19] MEDS: ARIPiprazole 10 MG TAB PO SCH (08:33)
[2017-10-19] MEDS: FOLIC ACID 1 MG TAB PO SCH (08:33)
[2017-10-19] MEDS: MULTIVITAMINS 1 EACH TAB PO SCH (08:33)
[2017-10-19] MEDS: THIAMINE HCL 100 MG TAB PO SCH (08:33)
[2017-10-19] MEDS ORDERED: chlordiazePOXIDE 25 MG CAP PO SCH (09:00)
[2017-10-19] MEDS: GABAPENTIN 400 MG CAP PO SCH ×2 (15:37→21:37)
[2017-10-20 06:48] VITALS: BP 124/76
--- NOTE | 2017-10-20 08:19 | BDS ---
REASON FOR ADMISSION: From the ED note dated 10/16/2017, patient presented to the ED, reported he was from [place] and presented to the emergency department complaining of suicidal thoughts. Patient reported he had been drinking heavily for the last 4 days. Patient stated that 2 weeks ago was the anniversary of his daughter's . Patient self-presented voluntarily to the emergency department. Patient was admitted involuntarily due to being a danger to himself. Patient was admitted for safety crisis, stabilization, and medication evaluation. ADMISSION DIAGNOSES: 1. Severe bipolar II disorder, hypomanic episode with anxious distress. 2. Alcohol use disorder, severe, in a controlled environment. 3. Cannabis use disorder, mild, in a controlled environment. 4. Suicidal ideation. 5. Homelessness. 6. Non-adherence to medical treatment. ADMISSION PHYSICAL EXAM: Patient was seen on 10/17/2017, for a history and physical for medical clearance for inpatient Behavioral Health stay. Patient was medically cleared for inpatient psychiatric hospitalization and treatment. For further details, please see history and physical dated 10/17/2017. ADMISSION LABS: CBC from 10/16/2017, within normal limits, except white blood cells were elevated at 10.06, absolute neutrophils were elevated at 6.85. Chemistry from 10/16/2017, within normal limits. Hemoglobin A1c from 10/18/2017 , was 5.7. Liver function tests from 10/18/2017, within normal limits. Fasting lipid panel from 10/16/2017, within normal limits, except triglycerides were elevated at 165, VLDL cholesterol was elevated at 33, non-HDL cholesterol was elevated at 130, and HDL cholesterol was elevated at 75. Toxicology screen from 10/16/2017, was non-negative for benzodiazepines non negative for THC, ethyl alcohol was elevated at 167, and was negative for all other substances of abuse. MAJOR PROCEDURES/TESTS: None. HOSPITAL COURSE: The most prominent symptoms and behaviors while the patient was here were severe anxiety, agitation and irritability. Treatment modalities utilized were milieu and group therapy. [facility] protocol was initiated to monitor alcohol withdrawal symptoms. Abilify 10 mg p.o. daily was started to target mood symptoms, was tolerated with no report of side effects and with good response. Patient reported history of good response from Abilify and reported that sometimes he would forget to take his medications, and often times, this would lead to exacerbation of his symptoms. Abilify long-acting injectable was discussed with patient. Patient requested Abilify Maintena 400 mg IM administered yesterday 10/19/2017, was tolerated with no report of side effects and with good response. Gabapentin 300 mg p.o. t.i.d. was started and titrated to 400 mg p.o. t.i.d. to target severe anxiety symptoms, was tolerated with no report of side effects and with good response. Patient has improved considerably with no signs of psychiatric symptoms and no psychiatric symptoms expressed at time of discharge. Patient reports he has improved since admission , states to be in stable condition, feels safe to discharge, and he contracts for safety. Patient's response to treatment was good. There were no adverse or unexpected results of treatment. The patient was safe throughout his stay, active in treatment, attended and engaged in groups, and was appropriate with staff and other patients. The treatment team consensus is the patient is in stable condition and is safe to discharge today. CONDITION AT DISCHARGE: Patient is in stable condition and is no longer a danger to self or others, and is not gravely disabled due to mental illness. Patient is no longer in need of inpatient level of care, and can be safely and effectively treated within the community. The patients level of risk at time of discharge is low based on the risk assessment below following this discharge summary. MSE: The patient is casually dressed and with good hygiene, and looks stated age. Patient is sitting, posture is upright, and position is relaxed. Patient appears awake, alert, and responds appropriately and reasonably during interview. Patient is engaged, relates well to interviewer, and emotional facial expression is appropriate to situation and changes appropriately with topic. Patient is cooperative, makes comfortable eye contact, and movements are voluntary, deliberate, coordinated, and smooth and even with no inappropriate movements. Patient makes laryngeal sounds effortlessly and shares conversation appropriately; pace of conversation is appropriate, and stream of talking is fluent; articulation is clear and understandable; word choice is effortless and appropriate for education level; completes sentences, occasionally pausing to think; rate and volume are appropriate for interview and setting. Patient reports mood as euthymic. Patients affect is stable with full variable range, congruent with mood, and appropriate to speech and circumstances. Patient has linear and logical thinking, with no loose associations, tangential thought, thought blocking, concrete thinking, or any other signs of formal thought disorder. Patient denies suicidal and homicidal ideation, and denies hallucinations and delusions. Patient appears to be a reliable historian with sound judgement and good insight into current condition. Patient has no apparent dysfunction in recent or remote memory noted , and no evidence of gross cognitive dysfunction noted at any point during the interview. DISCHARGE DIAGNOSES: 1. Bipolar II disorder, severe, most recent episode hypomanic with anxious distress. 2. Alcohol use disorder, severe. 3. Cannabis use disorder, mild. 4. Homelessness. CURRENT MEDICATIONS: After reviewing options, risks, and benefits, patient agrees to Abilify 10 mg p.o. daily for 12 more days for coverage for Abilify Maintena. Abilify Maintena 400 mg IM was administered on 10/19/2017. Next IM injection is due in 4 weeks. This is reviewed with the patient and patient understands to follow up for this next maintenance dose. Patient was provided a prescription for gabapentin 400 mg p.o. t.i.d. for 30 days. Prescriptions are reviewed with the patient at time of discharge to ensure accuracy and patient understanding. DISPOSITION: Patient left hospital independently and voluntarily with and plans to travel to [place], [place] to be near his family. Patient was provided with transportation resources for travel to [place], [place]. FOLLOWUP: clinical project coordinator reports the appropriate outpatient follow-up services have been established and outpatient appointments have been scheduled. The patient received written instructions with times and dates of outpatient follow-up appointments. The following follow-up recommendations were provided to the patient at discharge: Continue psychotropic medications as prescribed and attend appointments as scheduled. Report any side effects to a psychiatric outpatient provider, a primary care provider, or other health rn intensive care unit. Address any questions or problems concerning the psychotropic medications with a psychiatric outpatient provider, a primary care provider, or other health rn intensive care unit. Contact [facility] or [facility], or go to the nearest emergency room, if you are ever a danger to yourself/others, or unable to care for yourself. As soon as possible, establish a routine medication management treatment with a psychiatric provider, establish routine therapy appointments, and follow-up with a primary care provider. SUBSTANCE ABUSE BRIEF INTERVENTION: Brief intervention regarding the risks of cannabis abuse, methamphetamine, and alcohol/binge drinking is provided to patient with goal to reduce the risk of harm that could result from the continued use of cannabis, alcohol, and methamphetamine with the general aim to investigate the problem, raise awareness of problem, develop a solution with the patient, recommend a specific change or activity, and motivate the patient toward change. Assess substance abuse behavior and give supportive advice about harm reduction, recommend a reduction in hazardous/at-risk consumption patterns, and facilitate referrals for additional specialized treatment with primary care pediatrician. Intermediate goal is for the patient to quit use of cannabis and attend OP substance abuse treatment; groups and individual therapy. Intervention focus on intermediate goals to allow for more immediate success in the treatment process to keep the patient motivated. Review following with patient: Cannabis use risks: Short-term use: impaired short-term memory, impaired motor coordination, altered judgement, in high doses paranoia and psychosis. Long-term use addiction, diminished life satisfaction and achievement, symptoms of chronic bronchitis, and increased risk of chronic psychosis disorders if predisposition to such disorders. In withdrawal anger, aggression irritability, anxiety and nervousness, decreased appetite or weight loss, restlessness, and sleep difficulties with strange dreams. Alcohol/Binge Drinking risks: short-term: injuries, violence, alcohol poisoning, risky sexual behaviors. Long-term: high blood pressure, stroke, liver disease, digestive problems, cancer, learning and memory problems, depression and anxiety, social problems, and alcohol dependence. LEGAL COURSE: Patient was admitted voluntarily and remained voluntarily throughout his stay. Patient discharged today independently and voluntarily. ATTITUDE AT TIME OF DISCHARGE: The patients attitude was positive at time of discharge, and patient reports looking forward to discharging today. The patient reports he feels safe to discharge, is no longer a danger to himself or others, is in stable condition, and contracts for safety. Patient states he will continue medications as prescribed, and establish medication management treatment with an outpatient provider after discharge. Patient reports he understands the information that has been provided to him, and he understands, accepts, and agrees to psychotropic medications. Patient describes internal protective factors as the coping skills he has learned while hospitalized here, and he plans to continue to practice these coping skills after discharge. LABORATORY/STUDIES: There were no pending labs or studies at time of discharge. ADVANCED DIRECTIVES: There were no advance directives on file, and the patient was full code during this hospitalization. The following psychotropic medication treatment informed consent and recommendations were provided to the patient at time of discharge. Patient reports he understands, accepts, and agrees to the information that has been provided. PSYCHOTROPIC MEDICATION TREATMENT INFORMED CONSENT and RECOMMENDATIONS: Review nature of condition, diagnosis, and prognosis. Review nature and purpose of psychotropic medication treatment. Review type of psychotropic medications being prescribed. Review risk and benefits of psychotropic medication treatment. Review probable length of time will need to take medications. Review risk and benefits of not undergoing psychotropic medication treatment. Review alternative treatments to psychotropic medications. Review psychotropic medications contraindications, side effects, and importance of reporting any side effects to a psychiatric provider, primary care provider, or other health rn intensive care unit. Review importance of her asking a psychiatric provider or primary care provider any questions or problems concerning the psychotropic medications. Review safety plan and the importance to contact [facility] or [facility] , or go to the nearest emergency room, if ever a danger to yourself/others, or unable to care for yourself. Recommend upon discharge to establish routine medication management treatment with a psychiatric provider, establish routine therapy appointments, and follow-up with a primary care provider. Verify patient understands, accepts, and agrees to the information that has been provided. /[id number]
[2017-10-20] MEDS: FOLIC ACID 1 MG TAB PO SCH (09:04)
[2017-10-20] MEDS: THIAMINE HCL 100 MG TAB PO SCH (09:04)
[2017-10-20] MEDS: MULTIVITAMINS 1 EACH TAB PO SCH (09:04)
[2017-10-20] MEDS: ARIPiprazole 10 MG TAB PO SCH (09:04)
[2017-10-20] MEDS: GABAPENTIN 400 MG CAP PO SCH (09:04)
[2017-10-20] MEDS: IBUPROFEN 200 MG TAB PO PRN (09:11)
== END 2017-10-20 12:20 | disposition home or self-care (01) | DRG 885 ==
LOC: BBEH 10-17 10:45
PROVIDERS: ADMIT Psychiatry & Neurology Psychiatry; ATTEND Psychiatry & Neurology Psychiatry
DX: F31.81 Bipolar II disorder (principal); F12.959 Cannabis use, unspecified with psychotic disorder, unspecified; Z72.89 Other problems related to lifestyle; Z59.0 Homelessness; Z72.0 Tobacco use
CPT/HCPCS: 80305; 96374; G0480; J0401; J2060